=== PATIENT | female | born 1975 | race Caucasian/White ===

== ENCOUNTER → 2016-08-30 | Day surgery (SDC) | payer BC ==
[2016-08-30 10:15] LABS: BASOPHIL 0.2 % (0-2.0); EOSINOPHIL 1.9 % (0-4.5); MCH 25.1 pg (25.7-33.7); MCHC 32.5 g/dl (32.0-36.0); MEAN CELL VOLUME 77.2 fl (80-96); MEAN PLT VOLUME 8.2 fl (7.5-11.1); NEUTROPHILS 71.7 % (42.8-82.8); PLATELET COUNT 304 K/MM3 (134-434); RDW 14.9 % (11.6-15.6); WHITE BLOOD COUNT 12.9 K/mm3 (4.0-10.0)
[2016-08-30 10:37] LABS: INR 1.12 (0.82-1.09); PROTHROMBIN TIME (PATIENT) 12.4 SEC (9.98-11.88)
--- NOTE | 2016-08-31 15:42 | PATH ---
Cytology Non-Gynecological Report Patient Name: PEGGY GRIFFITHS [facility]. Rec. #: [id number] /Age/Gender: 1975 (Age: 41) / F Account: [id number] Location: RADIOLOGY Taken: 08/30/2016 Received: 08/30/2016 Reported: 08/31/2016 Physicians: Malcolm Nieto M.D. Specimen(s) Received RIGHT NECK LYMPH NODE Clinical History Cervical adenopathy. Rule out lymphoproliferative disease, rule out thyroid cancer metastasis. Final Diagnosis LYMPH NODE, NECK, FINE NEEDLE ASPIRATION: SATISFACTORY FOR EVALUATION. BENIGN (NO MALIGNANT CELLS IDENTIFIED). MIXED LYMPHOID POPULATION WITH PREDOMINANTLY SMALL MATURE LYMPHOCYTES PRESENT. Comment: See corresponding core biopsy report [id number]. Electronically Signed Bj Young M.D. Gross Description Approximately 15 cc of yellow fluid received fixed in 50% alcohol. One cytofunnel and one cellblock prepared.
--- NOTE | 2016-08-31 15:43 | PATH ---
Surgical Pathology Report Patient Name: PEGGY GRIFFITHS [facility]. Rec. #: [id number] /Age/Gender: 1975 (Age: 41) / F Account: [id number] Location: RADIOLOGY Taken: 08/30/2016 Received: 08/30/2016 Reported: 08/31/2016 Physicians: Keren Ovalle Chi Specimen(s) Received LYMPH NODE RIGHT NECK Clinical History 42-year-old female with bilateral cervical adenopathy History of thyroid nodules Rule out lymphoma/lymphoproliferative, rule out metastases for thyroid carcinoma Final Diagnosis LYMPH NODE, RIGHT NECK, NEEDLE CORE BIOPSY: SCANT BENIGN LYMPHOID TISSUE WITH MIXED POPULATION OF LYMPHOCYTES COMPRISED PREDOMINANTLY OF SMALL MATURE LYMPHOCYTES. NO METASTATIC CARCINOMA IDENTIFIED. NO GRANULOMATA IDENTIFIED. NO MORPHOLOGIC EVIDENCE OF HODGKIN OR NON-HODGKIN LYMPHOMA IDENTIFIED. Comment: Flow cytometry performed and interpreted at [place], [place] ([id number]) shows the following: INTERPRETATION: Limited sample; clonal B-cell populations are not present. Also see corresponding cytology case [id number]. Electronically Signed Bj Young M.D. Gross Description Received in formalin, labeled "right neck lymph node," are 3 paris, cylindrical portions of soft tissue ranging from 0.3-1.0 cm in length and averaging 0.1 cm in diameter. The specimens are submitted in toto in one cassette. There is additional tissue received in RPMI solution which is sent for flow cytometry. /08/30/201608/30/2016
== END | disposition home or self-care (01) ==
LOC: JRADIR 09:31
PROVIDERS: ATTEND Surgery
PROC: BW4FZZZ Ultrasonography of Neck (ICD-10-PCS; principal; 2016-08-30)
PROC: 07B13ZX Excision of Right Neck Lymphatic, Percutaneous Approach, Diagnostic (ICD-10-PCS; 2016-08-30)
PROC: 0W963ZX Drainage of Neck, Percutaneous Approach, Diagnostic (ICD-10-PCS; 2016-08-30)
PROC: BW4FZZZ Ultrasonography of Neck (ICD-10-PCS; 2016-08-30)
DX: R59.0 Localized enlarged lymph nodes (principal)
CPT/HCPCS: 10022; 36415; 38505; 76942; 84703; 85025; 85610; 87899; 88173; 88305-TC

== ENCOUNTER 2016-11-15 08:41 | Day surgery (SDC) | payer BC ==
[2016-11-15] MEDS ORDERED: PROPOFOL 20 ML ONE ×2 (09:07)
[2016-11-15 09:50] VITALS: BMI 29.2
[2016-11-15 11:43] VITALS: BP 124/65; PULSE 68; TEMP 98
--- NOTE | 2016-11-16 16:21 | PATH ---
Surgical Pathology Report Patient Name: PEGGY MYERS [facility]. Rec. #: [id number] /Age/Gender: 1975 (Age: 41) / F Account: [id number] Location: [facility]-ENDOSCOPY Taken: 11/15/2016 Received: 11/15/2016 Reported: 11/16/2016 Physicians: John Bui M.D. Specimen(s) Received BX ILEOCECAL VALVE Clinical History Rectal bleeding Polyp Final Diagnosis ILEOCECAL VALVE, BIOPSY: COLONIC MUCOSA SHOWING MILD SURFACE HYPERPLASTIC CHANGE. Electronically Signed Nayeli Dickerson M.D. Gross Description Received in formalin, labeled "ileocecal valve" is a paris, irregular portion of soft tissue measuring 0.2 cm. in greatest dimension. The specimen is submitted in toto in one cassette. 11/15/2016 [facility]/15/2016
== END 2016-11-15 11:15 | disposition home or self-care (01) ==
LOC: FASU-ENDO 08:41
PROVIDERS: ATTEND Internal Medicine Gastroenterology
PROC: 0DBC8ZX Excision of Ileocecal Valve, Via Natural or Artificial Opening Endoscopic, Diagnostic (ICD-10-PCS; principal; 2016-11-15 10:06)
DX: K62.5 Hemorrhage of anus and rectum (principal); D12.0 Benign neoplasm of cecum; K64.8 Other hemorrhoids
CPT/HCPCS: 84703; 88305-TC